=== PATIENT | male | born 1940 | race Caucasian/White ===

== ENCOUNTER → 2019-10-13 | Outpatient (CLI) | payer MEDICARE | END | disposition home or self-care (01) | LOC: LABWHC1 08:09 | PROVIDERS: ATTEND Urology | DX: C61 Malignant neoplasm of prostate (principal) | CPT/HCPCS: 36415; 84153 ==

== ENCOUNTER → 2020-01-07 | Outpatient (CLI) | payer MEDICARE | END | disposition home or self-care (01) | LOC: LABWHC1 08:09 | PROVIDERS: ATTEND Internal Medicine Medical Oncology | DX: C61 Malignant neoplasm of prostate (principal) | CPT/HCPCS: 36415; 84153 ==

== ENCOUNTER → 2020-01-22 | Outpatient (CLI) | payer MEDICARE ==
[2020-01-22 08:44] LABS: HCT 40.2 % (39.0-53.0); HGB 13.4 gm/dL (13.0-17.5); MCH 32.8 pg (25.0-35.0); MCHC 33.3 g/dL (31.0-37.0); MCV 98.7 fL (80.0-100.0); Mean Platelet Volume 8.3; Platelet Count 170 k/uL (150-450); RBC 4.07 m/uL (4.30-5.90); RDW 13.1 % (11.5-15.5); WBC 4.4 k/uL (3.8-10.6)
[2020-01-22 16:57] LABS: Anion Gap 5.1 mmol/L (4.00-12.00); Carbon Dioxide 28.9 mmol/L (21.6-31.8); Chol/HDL Ratio 2.65; LDL Cholesterol,Calculated 64.6 mg/dL (0.0-131.0); Potassium 4.3 mmol/L (3.5-5.5); VLDL Calculation 14.4 mg/dL (5.00-40.00)
[2020-01-22 16:58] LABS: African American GFR (CKD) 99.9 (60.0-200.0); Non-African American GFR(CKD) 86.2 (60.0-200.0)
== END | disposition home or self-care (01) ==
LOC: LABWHC1 08:01
PROVIDERS: ATTEND Internal Medicine Cardiovascular Disease
DX: E78.5 Hyperlipidemia, unspecified (principal); I11.9 Hypertensive heart disease without heart failure; Z79.02 Long term (current) use of antithrombotics/antiplatelets; Z79.899 Other long term (current) drug therapy
CPT/HCPCS: 36415; 80051; 80061; 82565; 82607; 82947; 83695; 84450; 84460; 84520; 85027; 86141

== ENCOUNTER → 2020-02-09 | Outpatient (CLI) | payer MEDICARE ==
[2020-02-09 14:48] LABS: African American GFR (CKD) >90 (>60 ml/min/1.73 sqM); Anion Gap 4 mmol/L; Blood Urea Nitrogen 14 mg/dL (9-20); Carbon Dioxide 28 mmol/L (22-30); Chloride 103 mmol/L (98-107); Non-African American GFR(CKD) 90 (>60 ml/min/1.73 sqM); Potassium 4.9 mmol/L (3.5-5.1); Sodium 135 mmol/L (137-145)
== END | disposition home or self-care (01) ==
LOC: LABWHC1 12:53
PROVIDERS: ATTEND Internal Medicine Cardiovascular Disease
DX: G45.4 Transient global amnesia (principal); Z86.73 Personal history of transient ischemic attack (TIA), and cerebral infarction without residual deficits; Z79.899 Other long term (current) drug therapy
CPT/HCPCS: 36415; 80051; 82565; 84520; 85303; 85306

== ENCOUNTER → 2020-03-29 | Outpatient (CLI) | payer MEDICARE ==
[2020-03-29 09:34] LABS: HCT 40.4 % (39.0-53.0); MCH 32.1 pg (25.0-35.0); MCHC 32.2 g/dL (31.0-37.0); MCV 99.6 fL (80.0-100.0); Mean Platelet Volume 7.5; Platelet Count 208 k/uL (150-450); RBC 4.06 m/uL (4.30-5.90); RDW 13.3 % (11.5-15.5); WBC 4.1 k/uL (3.8-10.6)
[2020-03-29 18:10] LABS: ALT 29 U/L (10-49); AST 29 U/L (14-35); African American GFR (CKD) 95.1 (60.0-200.0); Albumin/Globulin Ratio 1.95 (1.60-3.17); Alkaline Phosphatase 79 U/L (41-126); BUN/Creat Ratio 21.11 Ratio (12.00-20.00); Calcium 9.4 mg/dL (8.7-10.3); Carbon Dioxide 25.7 mmol/L (21.6-31.8); Chloride 105 mmol/L (96-109); Globulin 2.1 g/dL (1.6-3.3); Glucose 95 mg/dL (70-110); Non-African American GFR(CKD) 82.1 (60.0-200.0); Phosphorus 4.3 mg/dL (2.4-5.1); Potassium 5.1 mmol/L (3.5-5.5); Sodium 139 mmol/L (135-145); Total Bilirubin 0.6 mg/dL (0.2-1.2); Total Protein 6.2 g/dL (6.2-8.2)
[2020-03-29 18:35] LABS: Prostate Specific Antigen <0.1 ng/mL (0.0-6.5); Testosterone <7.00 ng/dL (86.98-780.10)
== END | disposition home or self-care (01) ==
LOC: LABWHC1 08:01
PROVIDERS: ATTEND Urology
DX: C61 Malignant neoplasm of prostate (principal); E55.9 Vitamin D deficiency, unspecified
CPT/HCPCS: 36415; 80048; 80076; 82306; 83735; 84100; 84153; 84403; 85027

== ENCOUNTER 2021-06-04 11:15 | Emergency (ER) | payer MEDICARE ==
[2021-06-04 11:26] VITALS: RESP 18; TEMP 98.9
[2021-06-04] MEDS ORDERED: LIDOCAINE 5% PATCH TOPICAL STA (12:53)
[2021-06-04] MEDS ORDERED: ACETAMINOPHEN TAB 500 MG TAB PO STA (12:53)
--- NOTE | 2021-06-04 13:02 | ED ---
General Adult HPI <Freedom Fairchild - Last Filed: 06/04/21 14:56> - General Source: patient, family, RN notes reviewed, old records reviewed Mode of arrival: wheelchair Limitations: no limitations <González Hawkins - Last Filed: 06/04/21 19:44> - General Chief complaint: Fall Stated complaint: fall last pm, on plavix Time Seen by Provider: 06/04/21 12:12 - History of Present Illness Initial comments: Patient is a 81-year-old male with past medical history remarkable for prostate cancer currently on injection status post prostatectomy presents emergency Department following a syncopal episode last night and hitting his head. Patient states he got up to use restroom. Was standing and actively urinating when he felt lightheaded and felt like he was about to pass out. States he attempted To Sit down on the Toilet and Passed out. He Struck His Head As Well As His Left Ribs on Unknown Object. He Doesn't Believe He Lost Consciousness for a Short Period of Time. He Was Able to Ambulate Back to His Bed Afterwards and Fall Back Asleep. He Woke This Morning, and Was Complaining of a Laceration to the Left [place]. He Is Also Having Left-Sided Rib Pain. He Presents Emergency Department over Concern for Injuries from His Fall. He Currently Is Not on Blood Thinners. Does take plavix. Denies Any Other Chest Pain, Shortness Breath, Abdominal Pain, Nausea, Vomiting. Currently Has No Other Acute Complaints. Denies Any Cardiac History. Recently Had a Full Normal Cardiac Workup. Fevers, chills, cough. Received both doses of the Covid 19 vaccination as well as the booster. (González Hawkins) - Related Data Home Medications Medication Instructions Recorded Confirmed Atorvastatin [Lipitor] 40 mg PO HS 01/17/16 06/04/21 Clopidogrel [Plavix] 75 mg PO HS 01/17/16 06/04/21 Cyanocobalamin [Vitamin B-12] 500 mcg PO DAILY 01/17/16 06/04/21 Omeprazole 20 mg PO MOWEFR 01/17/16 06/04/21 Calcium Carbonate [Calcium] 600 mg PO DAILY 06/04/21 06/04/21 Carvedilol [Coreg] 25 mg PO BID 06/04/21 06/04/21 Cholecalciferol [Vitamin D3 (25 25 mcg PO DAILY 06/04/21 06/04/21 Mcg = 1000 Iu)] Glucosam/Chond/Hyalu/Cf Borate 1 tab PO DAILY 06/04/21 06/04/21 [Move Free Joint Health Tablet] Vit C/E/Zn/Coppr/Lutein/Zeaxan 1 cap PO BID 06/04/21 06/04/21 [Preservision Areds 2 Softgel] calcitrioL [Calcitriol] 0.25 mcg PO DAILY 06/04/21 06/04/21 lisinopriL [Zestril] 5 mg PO DAILY 06/04/21 06/04/21 Previous Rx's Medication Instructions Recorded Lidocaine 5% Patch [Lidoderm 5% 1 patch TOPICAL DAILY PRN 14 Days 06/04/21 Patch] #14 patch Methocarbamol [Robaxin-750] 750 mg PO BID 7 Days #14 tablet 06/04/21 Allergies Allergy/AdvReac Type Severity Reaction Status Date / Time No Known Allergies Allergy Verified 06/04/21 15:10 Review of Systems ROS Other: All systems not noted in ROS Statement are negative. <Freedom Fairchild - Last Filed: 06/04/21 14:56> ROS Other: All systems not noted in ROS Statement are negative. <González Hawkins - Last Filed: 06/04/21 19:44> ROS Statement: Those systems with pertinent positive or pertinent negative responses have been documented in the HPI. Review of Systems: CONST: Denies fever EYES: Denies blurry vision ENT: Denies nasal congestion C/V: Denies Chest pain RESP: Denies shortness of breath GI: Denies abdominal pain : Denies dysuria SKIN: Denies rash. MSK: Endorse's face pain, rib pain NEURO: Denies headache (González Hawkins) Past Medical History Past Medical History: Cancer, CVA/TIA Additional Past Medical History / Comment(s): prostate ca History of Any Multi-Drug Resistant Organisms: None Reported Past Surgical History: Orthopedic Surgery Additional Past Surgical History / Comment(s): prostates hand surg Past Psychological History: No Psychological Hx Reported Smoking Status: Never smoker Past Alcohol Use History: Occasional Past Drug Use History: None Reported <González Hawkins - Last Filed: 06/04/21 19:44> General Exam Limitations: no limitations <González Hawkins - Last Filed: 06/04/21 19:44> - General Exam Comments Initial Comments: General: Appears in no acute distress. HEAD: Patient is a small laceration to the left side of the face as well as tenderness to palpation along the lateral zygomatic bone. On the left. Bruising around the site of laceration. No other obvious step-offs or deformities. Negative Alexander sign. Negative raccoon eyes. EYES: PERRLA, EOMI, conjunctiva normal, no discharge. Pupils are 3 mm and equal bilaterally. ENT: Hearing grossly intact, normal oropharynx. RESPIRATORY: Clear breath sounds bilaterally. No wheezes, rales, or rhonchi. C/V: Regular rate and rhythm. S1 and S2 auscultated, no edema, peripheral pulses 2+ and intact throughout ABD: Abd is soft, nontender, nondistended EXT: Normal range of motion, no obvious deformity.Patient has left-sided anterior and lateral rib pain to palpation. No obvious step-offs or deformity of the ribs. Patient has no midline spinal tenderness to palpation in the cervical, thoracic, lumbar spines. Pelvis is stable and nontender. SKIN: Small approximate 2 cm linear laceration located over the left side the lateral forehead. Small amount of bruising surrounding the laceration. NEURO: Alert and oriented x 4. Cranial nerves II-XII intact. No focal sensory or strength deficits. Able to ambulate without difficulty. NIH is 0. GCS is 15. Normal neurological exam. Cerebellar function is intact as evident by norm al finger-nose and heel briggs testing. (González Hawkins) Course Vital Signs 06/04/21 11:20 Temperature 98.9 F Pulse Rate 77 Respiratory 18 Rate Blood Pressure 172/80 O2 Sat by Pulse 96 Oximetry Procedures - Laceration Laceration #1 Consent Obtained: verbal consent Indication: laceration Site: scalp (superficial abrasion) Description: linear Depth: simple, single layer Size of Sutures: other (exofin) Patient Tolerated Procedure: well, no complications <Freedom Fairchild P - Last Filed: 06/04/21 14:56> Medical Decision Making - Lab Data Result diagrams: 06/04/21 13:07 06/04/21 13:07 <Freedom Fairchild P - Last Filed: 06/04/21 14:56> - Lab Data Result diagrams: 06/04/21 13:07 06/04/21 13:07 - EKG Data -: EKG Interpreted by Me <González Hawkins - Last Filed: 06/04/21 19:44> - Medical Decision Making Based on the patient's presentation and physical exam, I'm concerned for possibility a syncopal episode with residual possible bony medical injuries. Therefore we will obtain a CT head, as well as max face as well as x-rays of the bilateral ribs. We'll also obtain basic labs as well as an EKG and a single troponin this patient is having left-sided chest pain which is likely musculoskeletal but at his age as well as the syncopal episode cannot rule out cardiac etiology at this time. He was in agreement this plan. He will be given Tylenol, lidocaine. Aspirin will be given following CT head. Patient's EKG shows no signs of acute ischemia.Laboratory studies are unremarkable. Troponin is negative. Imaging revealed no acute traumatic injury to the face other than the left temporal scalp hematoma with laceration. Patient's brain CT showed no acute intracranial process. Rib x-ray with chest x-ray revealed left-sided rib fractures with no cardio pulmonary process. There was a delay in obtaining imaging secondary to the CT scanner being preoccupied with a critical patient. Results returned, I did update the patient as well as family members regarding the results. I do believe it is safe for him to be discharged home at this time. Laceration was repaired by mid-level provider. He'll be provided with an incentive spirometer and I educated him on how to use it. He will also be given muscle relaxers, lidocaine patches for pain control. Patient was in agreement this plan. I will provide the patient with a prescription for lidocaine patches, Robaxin. I instructed the patient to follow up with their PCP in the next 3 days. I explained that the patient should return to the emergency department if they experience any worsening symptoms. Strict return precautions were discussed with the patient. The patient expressed understanding of these instructions. I answered all questions that the patient had. The patient was discharged home in fair condition with their prescriptions and follow up information. (González Hawkins) - Lab Data Lab Results 06/04/21 06/04/21 06/04/21 Range/Units 13:07 13:07 13:07 WBC 7.3 (3.8-10.6) k/uL RBC 4.13 L (4.30-5.90) m/uL Hgb 13.6 (13.0-17.5) gm/dL Hct 41.0 (39.0-53.0) % MCV 99.1 (80.0-100.0) fL MCH 33.0 (25.0-35.0) pg MCHC 33.3 (31.0-37.0) g/dL RDW 13.0 (11.5-15.5) % Plt Count 173 (150-450) k/uL MPV 8.1 Neutrophils % 87 % Lymphocytes % 6 % Monocytes % 5 % Eosinophils % 1 % Basophils % 0 % Neutrophils # 6.3 (1.3-7.7) k/uL Lymphocytes # 0.4 L (1.0-4.8) k/uL Monocytes # 0.4 (0-1.0) k/uL Eosinophils # 0.1 (0-0.7) k/uL Basophils # 0.0 (0-0.2) k/uL Sodium 133 L (137-145) mmol/L Potassium 4.2 (3.5-5.1) mmol/L Chloride 100 (98-107) mmol/L Carbon Dioxide 26 (22-30) mmol/L Anion Gap 7 mmol/L BUN 18 (9-20) mg/dL Creatinine 0.70 (0.66-1.25) mg/dL Est GFR (CKD-EPI)AfAm >90 (>60 ml/min/1.73 sqM) Est GFR (CKD-EPI)NonAf >90 (>60 ml/min/1.73 sqM) Glucose 127 H (74-99) mg/dL Calcium 9.4 (8.4-10.2) mg/dL Total Bilirubin 1.0 (0.2-1.3) mg/dL AST 30 (17-59) U/L ALT 20 (4-49) U/L Alkaline Phosphatase 77 (38-126) U/L Troponin I <0.012 (0.000-0.034) ng/mL Total Protein 6.9 (6.3-8.2) g/dL Albumin 4.0 (3.5-5.0) g/dL - EKG Data EKG Comments: 12-lead Electrocardiogram Interpretation Note EKG was reviewed and interpreted by myself. 12-lead ECG performed at 1236 is interpreted by me as revealing normal sinus rhythm at a rate of 74 beats per minute. [place] is normal. VA interval is 142 ms, QRS duration is 84 ms, QTc is 420 ms.. There were no ST or T wave abnormalities to suggest myocardial ischemia or injury. R wave progression across the precordium was satisfactory. By my interpretation this EKG is non-diagnostic for acute ischemia. (González Hawkins) Disposition <Freedom Fairchild - Last Filed: 06/04/21 14:56> Is patient prescribed a controlled substance at d/c from ED?: No <González Hawkins - Last Filed: 06/04/21 19:44> Clinical Impression: Fall, Laceration, Rib fractures Disposition: HOME SELF-CARE Condition: Fair Instructions (If sedation given, give patient instructions): How to Use an Incentive Spirometer (ED), Rib Fracture (ED), Fall Prevention for Older Adults (ED) Prescriptions: Lidocaine 5% Patch [Lidoderm 5% Patch] 1 patch TOPICAL DAILY PRN 14 Days #14 patch PRN Reason: Pain Methocarbamol [Robaxin-750] 750 mg PO BID 7 Days #14 tablet Referrals: Kaylen Stevens MD [Primary Care Provider] - 1-2 days
[2021-06-04 13:13] LABS: Basophils % (A) 0 %; Eosinophils # (A) 0.1 k/uL (0-0.7); Eosinophils % (A) 1 %; HGB 13.6 gm/dL (13.0-17.5); Lymphocytes # (A) 0.4 k/uL (1.0-4.8); Lymphocytes % (A) 6 %; MCHC 33.3 g/dL (31.0-37.0); MCV 99.1 fL (80.0-100.0); Mean Platelet Volume 8.1; Monocytes # (A) 0.4 k/uL (0-1.0); Monocytes % (A) 5 %; Neutrophils # (A) 6.3 k/uL (1.3-7.7); Neutrophils % (A) 87 %; Platelet Count 173 k/uL (150-450); RBC 4.13 m/uL (4.30-5.90); WBC 7.3 k/uL (3.8-10.6)
[2021-06-04 13:31] LABS: ALT 20 U/L (4-49); AST 30 U/L (17-59); African American GFR (CKD) >90 (>60 ml/min/1.73 sqM); Alkaline Phosphatase 77 U/L (38-126); Anion Gap 7 mmol/L; Blood Urea Nitrogen 18 mg/dL (9-20); Calcium 9.4 mg/dL (8.4-10.2); Carbon Dioxide 26 mmol/L (22-30); Chloride 100 mmol/L (98-107); Glucose 127 mg/dL (74-99); Non-African American GFR(CKD) >90 (>60 ml/min/1.73 sqM); Potassium 4.2 mmol/L (3.5-5.1); Sodium 133 mmol/L (137-145); Total Protein 6.9 g/dL (6.3-8.2)
[2021-06-04] MEDS ORDERED: TOPICAL SKIN ADHESIVE 1 EACH AMP TOPICAL ONE (14:34)
--- NOTE | 2021-06-04 15:39 | XR ---
EXAMINATION TYPE: XR ribs bilat w pa chest xray DATE OF EXAM: 06/04/2021 COMPARISON: NONE HISTORY: Pain. Fall. TECHNIQUE: 9 views FINDINGS: Heart and mediastinum are normal. Lungs are clear. Diaphragm is normal. There is no evidenc e of pleural effusion or pneumothorax. There are nondisplaced fractures of the posterior lateral left fourth and fifth ribs. The right ribs appear intact. IMPRESSION: Acute left-sided rib fractures. No cardiopulmonary disease. Normal heart.
--- NOTE | 2021-06-04 15:42 | CT ---
EXAMINATION TYPE: CT brain wo con DATE OF EXAM: 06/04/2021 COMPARISON: None HISTORY: Head trauma, minor, normal mental status CT DLP: 1365.4 mGycm Automated exposure control for dose reduction was used. Ventricles have normal size. There is no mass effect nor midline shift. There is no sign of intracran ial hemorrhage. There is large left temporal scalp hematoma. This measures up to 1 cm in thickness. T here is no evidence of a temporal bone fracture. IMPRESSION: Left temporal scalp hematoma. No acute intracranial abnormality.
--- NOTE | 2021-06-04 15:45 | CT ---
EXAMINATION TYPE: CT facial bones wo con DATE OF EXAM: 06/04/2021 COMPARISON: None HISTORY: Head trauma, minor, normal mental status CT DLP: 1365.4 mGycm Automated exposure control for dose reduction was used. Images obtained from the bottom of the mandible to the top of the frontal sinuses with no contrast. The mandibular ring appears intact. Temporomandibular joints are intact. Zygomatic arches appear norm al. The maxilla is intact. There is no evidence of orbital blowout fracture. Orbital margins are inta ct. There is no evidence of retro-orbital mass. There is minimal mucosal thickening in the right maxi llary sinus. Nasal bone appears intact. There is increased density in the subcutaneous left side scal p over the temporal bone. This measures up to 10 mm in thickness. There is mild mucosal thickening in the anterior ethmoid and frontal sinuses. IMPRESSION: Left temporal scalp hematoma. Mild sinusitis. No facial bone fracture.
[2021-06-04 16:35] VITALS: BP 148/82; PULSE 82
== END 2021-06-04 16:35 | disposition home or self-care (01) ==
LOC: EC 11:15
DX: S01.01XA Laceration without foreign body of scalp, initial encounter (principal); S22.32XA Fracture of one rib, left side, initial encounter for closed fracture; Z79.02 Long term (current) use of antithrombotics/antiplatelets; Z86.73 Personal history of transient ischemic attack (TIA), and cerebral infarction without residual deficits; Z85.46 Personal history of malignant neoplasm of prostate; W01.10XA Fall on same level from slipping, tripping and stumbling with subsequent striking against unspecified object, initial encounter
CPT/HCPCS: 12001; 36415; 70450; 70486; 71111; 80053; 84484; 85025; 93005; 99284